=== PATIENT | female | born 1965 | race African-American/Black ===

== ENCOUNTER 2019-06-24 23:47 | Inpatient (IN) | payer OTHER ==
[~2019-06-24] VITALS: Ht 157.5 cm; Wt 88.5 kg
[~2019-06-24 23:47] MED LIST: AMIT10TA PO; CALC-98 PO; CYCL10TA2 PO; FERR325T14 PO; FISH OIL PO; GABA300C18 PO; HYDR-2765 PO; LEVO125T5 PO; MULT1CAP15 PO; NAPR-514 PO; RANI150T2 PO; TRAM50TA PO
[2019-06-25] MEDS ORDERED: THIAMINE INJ 100 MG in IV DEXTROSE 5% 50 ML IV ONE (00:30)
[2019-06-25] MEDS ORDERED: FAMOTIDINE 20 MG/2 ML VIAL IVP ONE (00:30)
[2019-06-25] MEDS ORDERED: IV NORMAL SALINE 1000ML BAG 1,000 ML IV ONE (00:30)
[2019-06-25] MEDS ORDERED: ONDANSETRON PF 4 MG/2 ML VIAL. IV ONE (00:30)
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
[2019-06-25 00:36] LABS: BASO % 1 % (0-3); EOS # 0.1 x10^3/uL (0.0-0.7); EOS % 1 % (0-3); HEMATOCRIT 39.6 % (36.0-47.0); HEMOGLOBIN 13.1 g/dL (12.0-15.5); LYMPH # 1.6 x10^3/uL (1.0-4.8); LYMPH % 30 % (24-48); MEAN CORPUSCULAR HEMOGLOBIN 31 pg (25-35); MEAN CORPUSCULAR HGB CONC 33 g/dL (31-37); MEAN CORPUSCULAR VOLUME 92 fL (79-100); MONO # 0.3 x10^3/uL (0.0-1.1); MONO % 5 % (0-9); NEUT # 3.2 x10^3/uL (1.8-7.7); NEUT % 62 % (31-73); PLATELET COUNT 220 x10^3/uL (140-400); RED BLOOD COUNT 4.31 x10^6/uL (3.50-5.40); RED CELL DISTRIBUTION WIDTH 15.1 % (11.5-14.5); WHITE BLOOD COUNT 5.2 x10^3/uL (4.0-11.0)
[2019-06-25 00:43] LABS: CALCIUM 9.3 mg/dL (8.5-10.1); GFR 68.7; POTASSIUM 3.1 mmol/L (3.5-5.1)
[2019-06-25 00:49] LABS: ALBUMIN 4.3 g/dL (3.4-5.0); TOTAL BILIRUBIN 0.1 mg/dL (0.2-1.0); TOTAL PROTEIN 8.5 g/dL (6.4-8.2)
[2019-06-25 00:50] LABS: BILIRUBIN,URINE NEGATIVE (NEG); CLARITY,URINE CLEAR; COLOR,URINE YELLOW; NITRITE,URINE NEGATIVE (NEG); PH,URINE 5.5; PROTEIN,URINE NEGATIVE (NEG-TRACE); UROBILINOGEN,URINE 0.2 mg/dL (0.2 mg/dL)
[2019-06-25 00:54] LABS: BACTERIA,URINE 0 /HPF (0-FEW); HYALINE CASTS, URINE MODERATE /HPF; RBC,URINE 0 /HPF (0-2); SQUAMOUS EPITHELIAL CELL,UR FEW /LPF
[2019-06-25 00:56] LABS: AMPHETAMINE/METHAMPHETAMINE POS (NEG); BARBITURATES NEG (NEG); BENZODIAZEPINES POS (NEG); CANNABINOIDS NEG (NEG); COCAINE POS (NEG); METHADONE NEG (NEG); OPIATES NEG (NEG); PHENCYCLIDINE NEG (NEG)
--- NOTE | 2019-06-25 01:09 | RAD ---
CT HEAD INDICATION: Altered mental status COMPARISON: None Available. Exposure: One or more of the following individualized dose reduction techniques were utilized for this examination: 1. Automated exposure control 2. Adjustment of the mA and/or kV according to patient size 3. Use of iterative reconstruction technique TECHNIQUE: 5 mm contiguous axial images were obtained from the skull base to the vertex in both bone and soft tissue algorithm. FINDINGS: Mild bilateral periventricular white matter hypodensities likely chronic small vessel ischemic disease. Small hypodensity identified in the right basal ganglia likely old lacunar infarct. No evidence of acute intracranial hemorrhage. No extra-axial fluid collections. No mass effect or midline shift. Ventricular size is appropriate. Basal cisterns are patent. No fractures identified.Camp-white differentiation is preserved.Globes and orbits are within normal limits. Paranasal sinuses and mastoid air cells are clear. IMPRESSION: No acute intracranial findings. Electronically signed by: Dawson Thompson MD (06/25/2019 1:06 AM) [facility]
[2019-06-25] MEDS ORDERED: ONDANSETRON PF 4 MG/2 ML VIAL. IV PRN (01:45)
[2019-06-25] MEDS ORDERED: ZIPRASIDONE IM 20 MG VIAL. IM ONE (04:10)
[2019-06-25] MEDS ORDERED: MIDAZOLAM HCL/PF 5 MG/5 ML VIAL. ONE (04:21)
--- NOTE | 2019-06-25 05:15 | NUR ---
The patient, SARAY COLEY, 54 y/o, F admitted by AMEYA CISSE MD. Arrived at the unit sleeping. The nurse will continue to monitor her.
[2019-06-25] MEDS: IV NORMAL SALINE 1000ML BAG 1,000 ML IV SCH ×2 (05:42→15:05)
[2019-06-25 05:46] VITALS: BP 123/48
--- NOTE | 2019-06-25 06:56 | NUR ---
Patient was sedated, the nurse was unable to do admission questions. The nurse has passed on the information to the day time nurse.
[2019-06-25 07:00] VITALS: BP 124/85
[2019-06-25 11:00] VITALS: BP 154/101
[2019-06-25] MEDS ORDERED: TRAM50TA PO (11:03)
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
--- NOTE | 2019-06-25 13:05 | NUR ---
The patient remains confused. This nurse was asked by the patient when was she brought to the hospital. The patient was likewise impulsive, got up and walked to the bathroom. This nurse and HEALTH SERVICES ADMINISTRATOR assisted the patient since she has weaving gait and unsteady on her feet. A walker and bedside commode were provided. The patient was reminded that we have to assist her in getting up to prevent her from falling.
--- NOTE | 2019-06-25 13:12 | NUR ---
The patient's daughter/POA called and requested that patient should be placed on the confidential list. She claims that only family members (pts daughter, son , and another relative) could have information about her. This nurse discussed with her that only individuals with the code can have the patient's information.
--- NOTE | 2019-06-25 14:04 | NUR ---
The patient cannot recall the dose of the meds she's taking, called [facility]. Home meds placed on the computer.
[2019-06-25] MEDS ORDERED: LEVO125T5 PO (14:09)
[2019-06-25] MEDS ORDERED: GABA-689 PO (14:09)
[2019-06-25] MEDS ORDERED: VENTOLIN HFA18 GM INH (14:10)
[2019-06-25] MEDS ORDERED: BUDE10.2 IH (14:11)
[2019-06-25 15:00] VITALS: BP 145/91
[2019-06-25] MEDS: IV NORMAL SALINE 1000ML BAG 1,000 ML IV ONE ×2 (15:03→22:56)
[2019-06-25 19:51] VITALS: BP 143/107
[2019-06-25] MEDS: BUDESONIDE 0.5 MG/2 ML NEBU. NEB SCH (20:28)
[2019-06-25] MEDS: ALBUTEROL SULFATE 2.5 MG/3 ML NEBU. NEB SCH (20:29)
[2019-06-25] MEDS: GABAPENTIN 400 MG CAPSULE. PO SCH (21:07)
[2019-06-25] MEDS: traMADol 50 MG TABLET PO PRN (21:08)
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
[2019-06-25] MEDS: HYDROcodone/APAP 5/325MG 1 TAB TABLET PO PRN (23:13)
[2019-06-25 23:30] VITALS: BP 136/95
[2019-06-26] MEDS: IV NORMAL SALINE 1000ML BAG 1,000 ML IV SCH (00:08)
--- NOTE | 2019-06-26 00:29 | NUR ---
Order for 1:1 and restraints used in ER before admission placed in computer by Harriett from ER. No 1:1 or restraints in use at this time.
[2019-06-26] MEDS ORDERED: HYDROCORTISONE 1% TOPICAL OINTMENT 30GM TUBE. TP PRN (01:30)
[2019-06-26 03:56] VITALS: BP 155/102
[2019-06-26] MEDS: LEVOTHYROXINE 125 MCG TABLET PO SCH (06:15)
[2019-06-26] MEDS: HYDROcodone/APAP 5/325MG 1 TAB TABLET PO PRN ×3 (06:15→19:54)
[2019-06-26] MEDS: ALBUTEROL SULFATE 2.5 MG/3 ML NEBU. NEB SCH ×4 (07:24→20:10)
[2019-06-26] MEDS: BUDESONIDE 0.5 MG/2 ML NEBU. NEB SCH ×2 (07:24→20:10)
[2019-06-26 07:52] VITALS: BP 141/104
[2019-06-26] MEDS: GABAPENTIN 400 MG CAPSULE. PO SCH ×3 (08:20→19:54)
[2019-06-26] MEDS: traMADol 50 MG TABLET PO PRN ×2 (08:20→16:34)
[2019-06-26 11:31] VITALS: BP 124/84
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
[2019-06-26 15:00] VITALS: BP 109/67
[2019-06-26] MEDS: NICOTINE 21MG PATCH. TD SCH (16:34)
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
[2019-06-26 19:35] VITALS: BP 139/81
[2019-06-26 23:14] VITALS: BP 122/73
[2019-06-27] MEDS: HYDROcodone/APAP 5/325MG 1 TAB TABLET PO PRN ×2 (02:20→08:58)
[2019-06-27 03:21] VITALS: BP 132/88
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
[2019-06-27] MEDS: LEVOTHYROXINE 125 MCG TABLET PO SCH (05:40)
[2019-06-27] MEDS: traMADol 50 MG TABLET PO PRN ×2 (05:42→14:45)
[2019-06-27] MEDS: BUDESONIDE 0.5 MG/2 ML NEBU. NEB SCH (06:07)
[2019-06-27] MEDS: ALBUTEROL SULFATE 2.5 MG/3 ML NEBU. NEB SCH ×2 (06:07→10:48)
[2019-06-27 07:00] VITALS: BP 136/90
[2019-06-27] MEDS: GABAPENTIN 400 MG CAPSULE. PO SCH ×2 (08:58→14:44)
[2019-06-27] MEDS: NICOTINE 21MG PATCH. TD SCH (08:59)
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
--- NOTE | 2019-06-27 10:49 | NUR ---
Received a call from [facility] that patient's insurance did not approve the requested brace--patient to get the ASO brace as out patient.
[2019-06-27 11:00] VITALS: BP 120/82
[2019-06-27 15:00] VITALS: BP 123/95
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
--- NOTE | 2019-06-27 15:16 | DISCH ---
DISCHARGE INSTRUCTIONS Condition on Discharge Condition on Discharge: Stable Activity After Discharge Activity Instructions for Disc: Activity as tolerated Lifting Instructions after Dis: No heavy lifting, No pulling or pushing Driving Instructions after Dis: Do not drive Diet after Discharge Diet after Discharge: Regular Checks after Discharge Checks after discharge: Check blood press - daily Contacting the DR. after DC Call your doctor for: If your condition worsens CHARLENE THOMAS MD Jun 27, 2019 15:16
--- NOTE | 2019-06-27 17:09 | NUR ---
Discharge Note: SARAY COLEY Discharge instructions and discharge home medications reviewed with patient and a copy given. All questions have been answered and understanding verbalized. The following instructions and handouts were given: May weight bear as tolerated on right foot (per Dr. Chapa), ASO brace tomorrow at [facility], instruction given to the patient. Handouts about polysubstance abuse, alcohol intoxication, and ankle fracture. Patient teaching done, needs reinforcement. Continue home meds. Follow up with Dr. Chapa in 3 weeks for repeat exam/ reevaluation. Follow up with PCP. Patient claims to have an apoointment tomorrow. Patient discharged to home via wheelchair accompanied by family member at 1700.
== END 2019-06-27 16:48 | disposition home or self-care (01) | DRG 917 ==
LOC: ER 23:47 → EDBD 23:47 → EEVIPCON 06-25 01:40 → MERGE 06-25 01:40 → 6 SOUTH 06-25 01:40
PROVIDERS: ADMIT Internal Medicine; ATTEND Internal Medicine
DX: T50.901A Poisoning by unspecified drugs, medicaments and biological substances, accidental (unintentional), initial encounter (principal); G93.41 Metabolic encephalopathy; S82.891A Other fracture of right lower leg, initial encounter for closed fracture; E03.9 Hypothyroidism, unspecified; F10.129 Alcohol abuse with intoxication, unspecified; F32.9 Major depressive disorder, single episode, unspecified; G62.9 Polyneuropathy, unspecified; J45.909 Unspecified asthma, uncomplicated; Y09 Assault by unspecified means; Z88.8 Allergy status to other drugs, medicaments and biological substances; Z91.013 Allergy to seafood; X58.XXXA Exposure to other specified factors, initial encounter; Y93.89 Activity, other specified; Y92.89 Other specified places as the place of occurrence of the external cause; Y99.8 Other external cause status
CPT/HCPCS: 36415; 70450; 73521; 73552; 73590; 73600; 73620; 80053; 80307; 81001; 81025; 85025; 94640; 96361; 96365; 96375; G0480; J2405; J3490; J7030; J7613; J7626; 97116; 97535; 99285-25; G0378

== ENCOUNTER 2020-10-08 11:22 | Emergency (ER) | payer OTHER ==
[~2020-10-08] VITALS: Ht 152.4 cm; Wt 86.0 kg
[~2020-10-08 11:22] MED LIST changes: +BUDE10.2 IH; +GABA-689 PO; +VENTOLIN HFA18 GM INH
[2020-10-08] MEDS ORDERED: ONDANSETRON PF 4 MG/2 ML VIAL. IV ONE (12:00)
[2020-10-08] MEDS ORDERED: fentaNYL PF VIAL 100 MCG/2 ML VIAL IV ONE (12:00)
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
[2020-10-08 13:00] VITALS: BP 113/68
[2020-10-08] MEDS ORDERED: CYCL10TA2 PO (13:08)
[2020-10-08] MEDS ORDERED: NAPR-514 PO (13:08)
[2020-10-08] MEDS ORDERED: ORPHENADRINE CITRATE 60 MG/2 ML VIAL. IM ONE (13:30)
[2020-10-08] MEDS ORDERED: KETOROLAC 30 MG/ML VIAL. IM ONE (13:30)
== END 2020-10-08 13:45 | disposition home or self-care (01) ==
LOC: ER 11:22
DX: G89.11 Acute pain due to trauma (principal); M54.5 Low back pain; M25.551 Pain in right hip; R20.2 Paresthesia of skin; F17.200 Nicotine dependence, unspecified, uncomplicated; Z98.890 Other specified postprocedural states; Z91.041 Radiographic dye allergy status; Z91.013 Allergy to seafood; W18.39XA Other fall on same level, initial encounter; Y93.89 Activity, other specified; Y92.89 Other specified places as the place of occurrence of the external cause; Y99.8 Other external cause status
CPT/HCPCS: 70450; 72125; 72128; 72131; 72192; 96374; 96375; 99285; J2405; J3010